=== PATIENT | male | born 1950 | race Caucasian/White ===

== ENCOUNTER → 2022-05-25 15:48 | Outpatient (CLI) | payer MEDICARE, SELFPAY ==
[2022-05-25 17:44] LABS: Prostate Specific Antigen 1.24 ng/mL (0.10-4.00)
== END ==
PROVIDERS: Referring Provider Specialist; Visit Provider Specialist
DX: N40.0 Benign prostatic hyperplasia without lower urinary tract symptoms (principal)
CPT/HCPCS: 36415; 84153